=== PATIENT | male | born 1965 | race Caucasian/White ===

== ENCOUNTER 2022-05-28 20:54 | Outpatient (CLI) | payer OTHER, SELFPAY | END 2022-05-28 20:55 | disposition home or self-care (01) | LOC: SLEEP 20:54 | PROVIDERS: PCP Family Medicine; Visit Provider Internal Medicine | DX: G47.33 Obstructive sleep apnea (adult) (pediatric) (principal); G47.61 Periodic limb movement disorder | CPT/HCPCS: 95810 ==